=== PATIENT | female | born 1980 | race Caucasian/White ===

== ENCOUNTER 2019-11-24 10:28 | Day surgery (SDC) | payer MEDICAID ==
[~2019-11-24 10:28] MED LIST: Lactated Ringers 1,000 ML IV SCH; Sodium Chloride 0.9% 10 ML SDV IV PRN; Sodium Chloride 0.9% 10 ML Syringe FLUSH PRN; Sodium Chloride 0.9% 2.5 ML Syringe FLUSH PRN; ceFAZolin 2 GM in Premix Bag 1 BAG IV ONE
--- NOTE | 2019-11-24 11:10 | PCM.PREANE ---
Preanesthetic Assessment - Anesthesia/Transfusion/Family Hx Anesthesia History: Prior Anesthesia Without Reaction Family History of Anesthesia Reaction: No Transfusion History: No Prior Transfusion(s) - Review of Systems General: No Symptoms Pulmonary: No Symptoms Cardiovascular: No Symptoms Neurological: No Symptoms Other: Reports: None - Physical Assessment NPO Status Date: 11/23/19 Height: 5 ft 7.25 in Weight: 85.729 kg ASA Class: 2 Mental Status: Alert & Oriented x3 Airway Class: Mallampati = 2 Dentition: Reports: Normal Dentition ROM/Head Extension: Full Lungs: Clear to Auscultation, Normal Respiratory Effort Cardiovascular: Regular Rate, Regular Rhythm - Lab Values: Laboratory Last Values WBC 6.02 K/uL (4.0-11.0) 11/24/19 10:56 RBC 4.54 M/uL (4.30-5.90) 11/24/19 10:56 Hgb 13.4 g/dL (12.0-16.0) 11/24/19 10:56 Hct 41.0 % (36.0-46.0) 11/24/19 10:56 MCV 90.3 fL (80.0-98.0) 11/24/19 10:56 MCH 29.5 pg (27.0-32.0) 11/24/19 10:56 MCHC 32.7 g/dL (31.0-37.0) 11/24/19 10:56 RDW Std Deviation 46.5 fl (28.0-62.0) 11/24/19 10:56 RDW Coeff of Alexa 14 % (11.0-15.0) 11/24/19 10:56 Plt Count 277 K/uL (150-400) 11/24/19 10:56 MPV 8.80 fL (7.40-12.00) 11/24/19 10:56 Neut % (Auto) 57.5 % (48.0-80.0) 11/24/19 10:56 Lymph % (Auto) 28.2 % (16.0-40.0) 11/24/19 10:56 [place] % (Auto) 11.1 % (0.0-15.0) 11/24/19 10:56 Eos % (Auto) 2.5 % (0.0-7.0) 11/24/19 10:56 Baso % (Auto) 0.7 % (0.0-1.5) 11/24/19 10:56 Neut # (Auto) 3.5 K/uL (1.4-5.7) 11/24/19 10:56 Lymph # (Auto) 1.7 K/uL (0.6-2.4) 11/24/19 10:56 [place] # (Auto) 0.7 K/uL (0.0-0.8) 11/24/19 10:56 Eos # (Auto) 0.2 K/uL (0.0-0.7) 11/24/19 10:56 Baso # (Auto) 0.0 K/uL (0.0-0.1) 11/24/19 10:56 Nucleated RBC % 0.0 /100WBC 11/24/19 10:56 Nucleated RBCs # 0 K/uL 11/24/19 10:56 - Allergies Allergies/Adverse Reactions: Allergies Allergy/AdvReac Type Severity Reaction Status Date / Time No Known Allergies Allergy Verified 11/18/19 09:17 - Blood Blood Available: No - Anesthesia Plan Pre-Op Medication Ordered: None - Acknowledgements Anesthesia Type Planned: General Anesthesia Pt an Appropriate Candidate for the Planned Anesthesia: Yes Alternatives and Risks of Anesthesia Discussed w Pt/Guardian: Yes Pt/Guardian Understands and Agrees with Anesthesia Plan: Yes PreAnesthesia Questionnaire HEENT History: Reports: Other (See Below) Other HEENT History: wears glasses Cardiovascular History: Reports: None Respiratory History: Reports: None Gastrointestinal History: Reports: GERD Genitourinary History: Reports: None EDGER AUTOMATIC History: Reports: Other OB/BYN History: ETOP x1 Musculoskeletal History: Reports: None Neurological History: Reports: None Psychiatric History: Reports: Anxiety Endocrine/Metabolic History: Reports: None Hematologic History: Reports: Anemia Immunologic History: Reports: None Oncologic (Cancer) History: Reports: None Dermatologic History: Reports: None - Past Surgical History Head Surgeries/Procedures: Reports: None HEENT Surgical History: Reports: Oral Surgery Cardiovascular Surgical History: Reports: None Respiratory Surgical History: Reports: None GI Surgical History: Reports: None Female Surgical History: Reports: None Endocrine Surgical History: Reports: None Neurological Surgical History: Reports: None Musculoskeletal Surgical History: Reports: None Oncologic Surgical History: Reports: None Dermatological Surgical History: Reports: None - SUBSTANCE USE Smoking Status *Q: Current Every Day Smoker Tobacco Use Within Last Twelve Months: Cigarettes - HOME MEDS Home Medications: Home Meds Acetaminophen [Tylenol] 2 tab PO ASDIRECTED PRN 11/18/19 [History] Cyanocobalamin (Vitamin B12) [Vitamin B12] 1 tab PO DAILY 11/18/19 [History] Doxycycline Hyclate 1 tab PO BID 11/18/19 [History] Ibuprofen 3 tab PO ASDIRECTED PRN 11/18/19 [History] Iron 65 mg PO DAILY 11/18/19 [History] Omeprazole Magnesium [Prilosec Otc] 20 mg PO DAILY 11/18/19 [History] Pnv No.95/Ferrous Fum/Folic AC [ Vitamin Tablet] 1 tab PO DAILY [History] metroNIDAZOLE [Flagyl] 1 tab PO BID 11/18/19 [History] - CURRENT (IN HOUSE) MEDS Current Meds: Current Medications Lactated Ringer's (Ringers, Lactated) 1,000 mls @ 500 mls/hr IV BOLUS NOY Sodium Chloride (Saline Flush) 10 ml FLUSH ASDIRECTED PRN PRN Reason: Keep Vein Open Sodium Chloride (Saline Flush) 2.5 ml FLUSH ASDIRECTED PRN PRN Reason: Keep Vein Open Sodium Chloride (Normal Saline) 10 ml IV ASDIRECTED PRN PRN Reason: IV Use Sodium Chloride (Saline Flush) 10 ml FLUSH ASDIRECTED PRN PRN Reason: Keep Vein Open Sodium Chloride (Saline Flush) 2.5 ml FLUSH ASDIRECTED PRN PRN Reason: Keep Vein Open Sodium Chloride (Normal Saline) 10 ml IV ASDIRECTED PRN PRN Reason: IV Use Discontinued Medications Cefazolin Sodium/Dextrose 2 gm (/ Premix) 50 mls @ 100 mls/hr IV ONETIME ONE Stop: 11/24/19 06:29
[2019-11-24 11:28] LABS: BLOOD UREA NITROGEN,BUN 12 mg/dL (7.0-18.0); CARBON DIOXIDE,CO2 24.6 mmol/L (21.0-32.0); CHLORIDE,CL 103 mmol/L (98-107); GLUCOSE RANDOM 91 mg/dL (74-106); POTASSIUM,K 4.1 mmol/L (3.5-5.1); SODIUM,NA 137 mmol/L (136-145)
[2019-11-24] MEDS ORDERED: Midazolam 1 MG/ML 2 ML SDV ONE ×3 (11:28→11:58)
[2019-11-24] MEDS ORDERED: Propofol 200 MG/20 ML SDV ONE (11:28)
[2019-11-24] MEDS ORDERED: fentaNYL 250 MCG/5 ML SDV ONE (11:29)
[2019-11-24] MEDS ORDERED: HYDROmorphone 2 MG/ML Syringe ONE (11:29)
[2019-11-24] MEDS ORDERED: Dexamethasone 4 MG/ML 5 ML MDV ONE (11:31)
[2019-11-24] MEDS ORDERED: Ondansetron 4 MG/2 ML SDV ONE (11:31)
[2019-11-24] MEDS ORDERED: Lidocaine 2% 5 ML SDV ONE (11:31)
[2019-11-24] MEDS ORDERED: Ketorolac 30 MG/ML SDV ONE (11:31)
[2019-11-24] MEDS ORDERED: Glycopyrrolate 0.2 MG/ML SDV ONE (11:31)
[2019-11-24] MEDS ORDERED: Sugammadex Sodium 200 MG/2 ML VIAL ONE (11:33)
--- NOTE | 2019-11-24 11:35 | PCM.SN.2 ---
- Free Text/Narrative Note: Contacted by nursing staff that patient is extremely nervous and tearful. I visited with her and she requested some relaxing medication so versed 2 mg given IVP after nasal cannula and monitor placed on patient.
[2019-11-24] MEDS ORDERED: Fluorescein 5 ML Vial ONE ×2 (11:38→13:50)
--- NOTE | 2019-11-24 11:49 | PCM.SN.2 ---
- Free Text/Narrative Note: Patient is requesting additional relaxing medication as she states that she initially got dizzy and felt a little better but she is still very nervous. Versed 2 mg and Glycopyrrolate 0.2 mg given IV at the request of Arbaham Nguyen CRNA who will be dong her anesthesia for her surgery.
[2019-11-24] MEDS ORDERED: Bupivacaine 0.25% 10 ML SDV ONE (12:00)
[2019-11-24] MEDS ORDERED: Sodium Chloride 0.9% 20 ML ONE (12:02)
[2019-11-24] MEDS ORDERED: ceFAZolin 1 GM Vial ONE (12:02)
[2019-11-24] MEDS ORDERED: Rocuronium 100 MG/10 ML Syringe ONE ×2 (12:58)
[2019-11-24] MEDS ORDERED: Acetaminophen 1,000 MG in Premix Bag 1 BAG IV PRN (14:19)
[2019-11-24] MEDS ORDERED: Furosemide 40 MG/4 ML VIAL ONE (15:16)
[2019-11-24] MEDS: fentaNYL 100 MCG/2 ML SDV IVPUSH PRN ×2 (16:39→16:54)
[2019-11-24] MEDS ORDERED: Promethazine 25 MG/ML SDV IM PRN (16:52)
[2019-11-24] MEDS ORDERED: Ondansetron 4 MG/2 ML SDV IVPUSH PRN (16:52)
[2019-11-24] MEDS ORDERED: metroNIDAZOLE/Normal Saline 500 MG in Premix Bag 1 BAG IV ONE (16:52)
[2019-11-24] MEDS ORDERED: Ketorolac 30 MG/ML SDV IVPUSH ONE ×2 (16:52→16:58)
[2019-11-24] MEDS ORDERED: Belladonna Alkaloids/Opium 16.2-30 MG Supp RECTAL ONE (17:00)
[2019-11-24] MEDS ORDERED: Dextrose 5%-0.9% NaCl 1,000 ML IV SCH (17:00)
--- NOTE | 2019-11-24 17:07 | PCM.OPNOTE ---
- General Post-Op/Procedure Note Date of Surgery/Procedure: 11/24/19 Operative Procedure(s): Total laparoscopic hysterectomy. Bilateral salphingectomy. Cystoscopy Findings: Normal sized retroverted uterus Laparoscopy showed 3cm subserosal fibroid Bilateral tubes completed adhered to the posterior side wall Bilateral hydrosalphinx also noted with dilated tubes Cystoscopy showed bilateral ureteral jets and intact bladder Pre Op Diagnosis: Chronic PID Post-Op Diagnosis: Chronic PID. Uterine fibroid. Bilateral hydrosalpinx Anesthesia Technique: General ET Tube Primary Surgeon: Rosalba Omalley Secondary Surgeon: Kellie Almendarez Anesthesia Provider: Abraham Nguyen Pathology: Uterus, cervix Bilateral tubes Fluid Replacement, Intraop: 2,400 Output, Urine Amount: 200 EBL in mLs: 100 Complications: None Condition: Good Free Text/Narrative:: Intake & Output 11/24/19 11/24/19 11/24/19 06:59 14:59 22:59 Output Total 200 Balance -200
--- NOTE | 2019-11-24 17:56 | PCM.POSTAN ---
POST ANESTHESIA ASSESSMENT - MENTAL STATUS Mental Status: Alert, Oriented - VITAL SIGNS Vital Signs: Last Vital Signs Temp 97.6 F 11/24/19 16:28 Pulse 69 11/24/19 17:26 Resp 6 L 11/24/19 17:26 BP 107/66 11/24/19 17:26 Pulse Ox 100 11/24/19 17:26 - RESPIRATORY Respiratory Status: Respiratory Rate WNL, Airway Patent, O2 Saturation Stable - CARDIOVASCULAR CV Status: Pulse Rate WNL, Blood Pressure Stable - GASTROINTESTINAL GI Status: No Symptoms - PAIN Pain Score: 7 (but appears only in mod (not severe) discomfort) - POST OP HYDRATION Hydration Status: Adequate & Stable
[2019-11-24] MEDS: Morphine 4 MG/ML Syringe IVPUSH PRN ×2 (17:59→22:04)
[2019-11-24] MEDS: Acetaminophen 325 MG Tab PO SCH ×2 (18:05→22:03)
[2019-11-24] MEDS: Metoclopramide 10 MG/2 ML SDV IVPUSH SCH (18:10)
[2019-11-24] MEDS: oxyCODONE 5 MG Tab PO PRN (20:54)
[2019-11-24] MEDS: cefOXitin 2 GM in Premix Bag 1 BAG IV SCH (21:03)
[2019-11-25] MEDS: Ketorolac 30 MG/ML SDV IVPUSH PRN ×2 (01:22→07:05)
[2019-11-25] MEDS: oxyCODONE 5 MG Tab PO PRN ×3 (01:23→10:09)
[2019-11-25] MEDS: cefOXitin 2 GM in Premix Bag 1 BAG IV SCH (01:38)
[2019-11-25] MEDS: Acetaminophen 325 MG Tab PO SCH ×3 (06:12→10:08)
[2019-11-25 06:20] LABS: BLOOD UREA NITROGEN,BUN 13 mg/dL (7.0-18.0); CARBON DIOXIDE,CO2 26.6 mmol/L (21.0-32.0); CHLORIDE,CL 106 mmol/L (98-107); GLUCOSE RANDOM 89 mg/dL (74-106); POTASSIUM,K 3.6 mmol/L (3.5-5.1); SODIUM,NA 138 mmol/L (136-145)
[2019-11-25] MEDS: Metoclopramide 10 MG/2 ML SDV IVPUSH SCH ×2 (06:23→10:10)
--- NOTE | 2019-11-25 07:32 | PCM48HPAN ---
Post Anesthesia Note - EVALUATION WITHIN 48HRS OF ANESTHETIC Vital Signs in Normal Range: Yes Patient Participated in Evaluation: Yes Respiratory Function Stable: Yes Airway Patent: Yes Cardiovascular Function Stable: Yes Hydration Status Stable: Yes Pain Control Satisfactory: Yes (pain is tolerable) Nausea and Vomiting Control Satisfactory: Yes Mental Status Recovered: Yes Vital Signs: Last Vital Signs Temp 36.8 C 11/25/19 04:00 Pulse 71 11/25/19 04:00 Resp 14 11/25/19 04:00 BP 98/47 L 11/25/19 04:00 Pulse Ox 97 11/25/19 04:00
--- NOTE | 2019-11-25 10:17 | PCM.SURGPN ---
- General Info Date of Service: 11/25/19 Date of Surgery/Procedure: 11/25/19 POD#: 1 Post-Op Diagnosis: Chronic PID Functional Status: Reports: Pain Controlled, Tolerating Diet, Ambulating, Urinating - Review of Systems General: Reports: No Symptoms HEENT: Reports: No Symptoms Pulmonary: Reports: No Symptoms Cardiovascular: Reports: No Symptoms Gastrointestinal: Reports: No Symptoms Genitourinary: Reports: No Symptoms Musculoskeletal: Reports: No Symptoms Skin: Reports: No Symptoms Neurological: Reports: No Symptoms Psychiatric: Reports: No Symptoms - Patient Data Vitals - Most Recent: Last Vital Signs Temp 37.1 C 11/25/19 07:15 Pulse 68 11/25/19 07:15 Resp 16 11/25/19 07:15 BP 108/66 11/25/19 07:15 Pulse Ox 96 11/25/19 07:15 Weight - Most Recent: 85.729 kg I&O - Last 24 Hours: Intake & Output 11/24/19 11/25/19 11/25/19 22:59 06:59 14:59 Intake Total 5600 Output Total 1250 700 Balance 4350 -700 Lab Results Last 24 Hrs: Laboratory Results - last 24 hr 11/24/19 11/24/19 11/24/19 Range/Units 10:56 10:56 10:56 WBC 6.02 (4.0-11.0) K/uL RBC 4.54 (4.30-5.90) M/uL Hgb 13.4 (12.0-16.0) g/dL Hct 41.0 (36.0-46.0) % MCV 90.3 (80.0-98.0) fL MCH 29.5 (27.0-32.0) pg MCHC 32.7 (31.0-37.0) g/dL RDW Std Deviation 46.5 (28.0-62.0) fl RDW Coeff of Alexa 14 (11.0-15.0) % Plt Count 277 (150-400) K/uL MPV 8.80 (7.40-12.00) fL Neut % (Auto) 57.5 (48.0-80.0) % Lymph % (Auto) 28.2 (16.0-40.0) % [place] % (Auto) 11.1 (0.0-15.0) % Eos % (Auto) 2.5 (0.0-7.0) % Baso % (Auto) 0.7 (0.0-1.5) % Neut # (Auto) 3.5 (1.4-5.7) K/uL Lymph # (Auto) 1.7 (0.6-2.4) K/uL [place] # (Auto) 0.7 (0.0-0.8) K/uL Eos # (Auto) 0.2 (0.0-0.7) K/uL Baso # (Auto) 0.0 (0.0-0.1) K/uL Nucleated RBC % 0.0 /100WBC Nucleated RBCs # 0 K/uL Sodium 137 (136-145) mmol/L Potassium 4.1 (3.5-5.1) mmol/L Chloride 103 (98-107) mmol/L Carbon Dioxide 24.6 (21.0-32.0) mmol/L BUN 12 (7.0-18.0) mg/dL Creatinine 0.7 (0.6-1.0) mg/dL Est Cr Clr Drug Dosing 105.91 mL/min Estimated GFR (MDRD) > 60.0 ml/min Glucose 91 (74-106) mg/dL Calcium 8.6 (8.5-10.1) mg/dL HCG, Qual NEGATIVE (NEG) Blood Type Antibody Screen 11/24/19 11/25/19 11/25/19 Range/Units 10:57 05:55 05:55 WBC 11.05 H (4.0-11.0) K/uL RBC 3.55 L (4.30-5.90) M/uL Hgb 10.6 L (12.0-16.0) g/dL Hct 32.2 L (36.0-46.0) % MCV 90.7 (80.0-98.0) fL MCH 29.9 (27.0-32.0) pg MCHC 32.9 (31.0-37.0) g/dL RDW Std Deviation 46.5 (28.0-62.0) fl RDW Coeff of Alexa 14 (11.0-15.0) % Plt Count 213 (150-400) K/uL MPV 8.60 (7.40-12.00) fL Neut % (Auto) 67.7 (48.0-80.0) % Lymph % (Auto) 22.3 (16.0-40.0) % [place] % (Auto) 9.0 (0.0-15.0) % Eos % (Auto) 0.8 (0.0-7.0) % Baso % (Auto) 0.2 (0.0-1.5) % Neut # (Auto) 7.5 H (1.4-5.7) K/uL Lymph # (Auto) 2.5 H (0.6-2.4) K/uL [place] # (Auto) 1.0 H (0.0-0.8) K/uL Eos # (Auto) 0.1 (0.0-0.7) K/uL Baso # (Auto) 0.0 (0.0-0.1) K/uL Nucleated RBC % 0.0 /100WBC Nucleated RBCs # 0 K/uL Sodium 138 (136-145) mmol/L Potassium 3.6 (3.5-5.1) mmol/L Chloride 106 (98-107) mmol/L Carbon Dioxide 26.6 (21.0-32.0) mmol/L BUN 13 (7.0-18.0) mg/dL Creatinine 0.7 (0.6-1.0) mg/dL Est Cr Clr Drug Dosing 105.91 mL/min Estimated GFR (MDRD) > 60.0 ml/min Glucose 89 (74-106) mg/dL Calcium 7.4 L (8.5-10.1) mg/dL HCG, Qual (NEG) Blood Type O POSITIVE Antibody Screen NEGATIVE Med Orders - Current: Current Medications Acetaminophen (Tylenol) 650 mg PO Q4H NOY Last Admin: 11/25/19 10:08 Dose: 650 mg Lactated Ringer's (Ringers, Lactated) 1,000 mls @ 500 mls/hr IV BOLUS NOY Last Admin: 11/24/19 11:24 Dose: 500 mls/hr Acetaminophen 1,000 mg/ Premix 100 mls @ 400 mls/hr IV Q6H PRN PRN Reason: Pain Last Admin: 11/24/19 16:58 Dose: 400 mls/hr Dextrose/Sodium Chloride (Dextrose 5%-Normal Saline) 1,000 mls @ 125 mls/hr IV ASDIRECTED NOY Last Admin: 11/24/19 18:15 Dose: 125 mls/hr Ketorolac Tromethamine (Toradol) 30 mg IVPUSH Q6H PRN PRN Reason: Pain (severe 7-10) Stop: 11/29/19 16:52 Last Admin: 11/25/19 07:05 Dose: 30 mg Metoclopramide HCl (Reglan) 10 mg IVPUSH Q8H [facility] Last Admin: 11/25/19 10:10 Dose: 10 mg Morphine Sulfate (Morphine) 4 mg IVPUSH Q2H PRN PRN Reason: Pain (severe 7-10) Last Admin: 11/24/19 22:04 Dose: 4 mg Ondansetron HCl (Zofran) 4 mg IVPUSH Q6H PRN PRN Reason: Nausea/Vomiting Oxycodone HCl (Oxycodone) 5 mg PO Q4H PRN PRN Reason: Pain (moderate 4-6) Last Admin: 11/25/19 10:09 Dose: 5 mg Promethazine HCl (Phenergan) 25 mg IM Q6H PRN PRN Reason: Nausea/Vomiting Sodium Chloride (Saline Flush) 10 ml FLUSH ASDIRECTED PRN PRN Reason: Keep Vein Open Sodium Chloride (Saline Flush) 2.5 ml FLUSH ASDIRECTED PRN PRN Reason: Keep Vein Open Sodium Chloride (Normal Saline) 10 ml IV ASDIRECTED PRN PRN Reason: IV Use Sodium Chloride (Saline Flush) 10 ml FLUSH ASDIRECTED PRN PRN Reason: Keep Vein Open Sodium Chloride (Saline Flush) 2.5 ml FLUSH ASDIRECTED PRN PRN Reason: Keep Vein Open Sodium Chloride (Normal Saline) 10 ml IV ASDIRECTED PRN PRN Reason: IV Use Discontinued Medications Belladonna Alkaloids/Opium (B & O Supprettes No. 15a) 1 supp RECTAL ONETIME ONE Stop: 11/24/19 17:01 Last Admin: 11/24/19 18:54 Dose: 1 supp Bupivacaine HCl (Sensorcaine-Mpf 0.25%) Confirm Administered Dose 10 ml .ROUTE .STK-MED ONE Stop: 11/24/19 12:01 Cefazolin Sodium (Ancef) Confirm Administered Dose 2 gm .ROUTE .STK-MED ONE Stop: 11/24/19 12:03 Dexamethasone (Dexamethasone) Confirm Administered Dose 20 mg .ROUTE .STK-MED ONE Stop: 11/24/19 11:32 Fentanyl (Sublimaze) Confirm Administered Dose 250 mcg .ROUTE .STK-MED ONE Stop: 11/24/19 11:30 Fentanyl (Sublimaze) 50 mcg IVPUSH Q5M PRN PRN Reason: Pain Last Admin: 11/24/19 16:54 Dose: 50 mcg Fluorescein Sodium (Ak-Fluor) Confirm Administered Dose 5 ml .ROUTE .STK-MED ONE Stop: 11/24/19 11:39 Fluorescein Sodium (Ak-Fluor) Confirm Administered Dose 5 ml .ROUTE .STK-MED ONE Stop: 11/24/19 13:51 Furosemide (Lasix) Confirm Administered Dose 40 mg .ROUTE .STK-MED ONE Stop: 11/24/19 15:17 Glycopyrrolate (Robinul) Confirm Administered Dose 0.2 mg .ROUTE .STK-MED ONE Stop: 11/24/19 11:32 Hydromorphone HCl (Dilaudid) Confirm Administered Dose 2 mg .ROUTE .STK-MED ONE Stop: 11/24/19 11:30 Cefazolin Sodium/Dextrose 2 gm (/ Premix) 50 mls @ 100 mls/hr IV ONETIME ONE Stop: 11/24/19 06:29 Last Admin: 11/24/19 18:05 Dose: Not Given Sodium Chloride (Normal Saline) Confirm Administered Dose 20 mls @ as directed .ROUTE .STK-MED ONE Stop: 11/24/19 12:03 Acetaminophen (Ofirmev) Confirm Administered Dose 100 mls @ as directed .ROUTE .STK-MED ONE Stop: 11/24/19 16:41 Metronidazole 500 mg/ Premix 100 mls @ 100 mls/hr IV ONETIME ONE Stop: 11/24/19 17:51 Last Admin: 11/24/19 19:01 Dose: 100 mls/hr Cefoxitin Sodium 2 gm/ Premix 50 mls @ 100 mls/hr IV Q6H NOY Stop: 11/25/19 00:29 Last Admin: 11/25/19 01:38 Dose: 100 mls/hr Ketorolac Tromethamine (Toradol) Confirm Administered Dose 30 mg .ROUTE .STK- MED ONE Stop: 11/24/19 11:32 Ketorolac Tromethamine (Toradol) 60 mg IVPUSH ONETIME ONE Stop: 11/24/19 16:59 Last Admin: 11/24/19 17:08 Dose: 60 mg Ketorolac Tromethamine (Toradol) 30 mg IVPUSH ONETIME ONE Stop: 11/24/19 16:53 Last Admin: 11/24/19 18:05 Dose: Not Given Lidocaine (Xylocaine-Mpf 2%) Confirm Administered Dose 5 ml .ROUTE .STK-MED ONE Stop: 11/24/19 11:32 Midazolam HCl (Versed 1 Mg/Ml) Confirm Administered Dose 2 mg .ROUTE .STK-MED ONE Stop: 11/24/19 11:29 Midazolam HCl (Versed 1 Mg/Ml) Confirm Administered Dose 2 mg .ROUTE .STK-MED ONE Stop: 11/24/19 11:30 Midazolam HCl (Versed 1 Mg/Ml) Confirm Administered Dose 2 mg .ROUTE .STK-MED ONE Stop: 11/24/19 11:59 Ondansetron HCl (Zofran) Confirm Administered Dose 4 mg .ROUTE .STK-MED ONE Stop: 11/24/19 11:32 Propofol (Diprivan 20 Ml) Confirm Administered Dose 200 mg .ROUTE .STK-MED ONE Stop: 11/24/19 11:29 Rocuronium [place] (Zemuron) Confirm Administered Dose 100 mg .ROUTE .STK-MED ONE Stop: 11/24/19 12:59 Rocuronium [place] (Zemuron) Confirm Administered Dose 100 mg .ROUTE .STK-MED ONE Stop: 11/24/19 12:59 Sugammadex Sodium (Bridion) Confirm Administered Dose 200 mg .ROUTE .STK-MED ONE Stop: 11/24/19 11:34 - Exam Wound/Incisions: Dressing Dry and Intact General: Alert HEENT: Pupils Equal Neck: Supple Lungs: Clear to Auscultation Cardiovascular: Regular Rate, Regular Rhythm GI/Abdominal Exam: Normal Bowel Sounds Extremities: Normal Inspection Neurological: No New Focal Deficit Psy/Mental Status: Alert Sepsis Event Note - Evaluation Sepsis Screening Result: No Definite Risk - Focused Exam Vital Signs: Vital Signs Temp Pulse Resp BP Pulse Ox 11/25/19 07:15 37.1 C 68 16 108/66 96 11/25/19 04:00 36.8 C 71 14 98/47 L 97 Date Exam was Performed: 11/25/19 Time Exam was Performed: 10:12 - Problem List & Annotations (1) S/P hysterectomy SNOMED Code(s): 323917573, 991542786, 902783797 Code(s): Z90.710 - ACQUIRED ABSENCE OF BOTH CERVIX AND UTERUS Status: Acute Current Visit: Yes - Problem List Review Problem List Initiated/Reviewed/Updated: Yes - My Orders Last 24 Hours: Active Orders 24 hr Category Date Time Status Patient Status [ADT] Routine ADT 11/24/19 16:52 Active Antiembolic Devices [RC] PER UNIT ROUTINE Care 11/24/19 16:53 Active Notify Provider Intake and Out [RC] ASDIRECTED Care 11/24/19 16:52 Active Notify Provider Vital Signs [RC] ASDIRECTED Care 11/24/19 16:52 Active Oxygen Therapy [RC] ASDIRECTED Care 11/24/19 16:52 Active RT Incentive Spirometry [RC] Q2HWA Care 11/24/19 16:52 Active Up With Assistance [RC] PER UNIT ROUTINE Care 11/24/19 16:52 Active Up ad Joleen [RC] PER UNIT ROUTINE Care 11/24/19 16:52 Active Urinary Catheter Removal [RC] Per Unit Routine Care 11/24/19 16:52 Active Regular Diet [DIET] Diet 11/24/19 Dinner Active Acetaminophen [Ofirmev] 1,000 mg Med 11/24/19 14:19 Active Premix Bag 1 bag IV Q6H Acetaminophen [Tylenol] Med 11/24/19 18:00 Active 650 mg PO Q4H Dextrose 5%-0.9% NaCl [Dextrose 5%-Normal Saline] 1,000 Med 11/24/19 17:00 Active ml IV ASDIRECTED Ketorolac [Toradol] Med 11/24/19 16:52 Active 30 mg IVPUSH Q6H PRN Metoclopramide [Reglan] Med 11/24/19 17:15 Active 10 mg IVPUSH Q8H Morphine Med 11/24/19 16:52 Active 4 mg IVPUSH Q2H PRN Ondansetron [Zofran] Med 11/24/19 16:52 Active 4 mg IVPUSH Q6H PRN Promethazine [Phenergan] Med 11/24/19 16:52 Active 25 mg IM Q6H PRN oxyCODONE Med 11/24/19 16:52 Active 5 mg PO Q4H PRN Peripheral IV Discontinue [OM.PC] Routine Oth 11/24/19 16:52 Ordered Sequential Compression Device [OM.PC] Per Unit Routine Oth 11/24/19 16:52 Ordered Resuscitation Status Routine Resus Stat 11/24/19 16:52 Ordered Medication Orders Acetaminophen (Tylenol) 650 mg PO Q4H [facility] Last Admin: 11/25/19 10:08 Dose: 650 mg Admin: 11/25/19 06:40 Dose: Not Given Admin: 11/25/19 06:12 Dose: 650 mg Admin: 11/24/19 22:03 Dose: 650 mg Admin: 11/24/19 18:05 Dose: Lactated Ringer's (Ringers, Lactated) 1,000 mls @ 500 mls/hr IV BOLUS [facility] Last Admin: 11/24/19 11:24 Dose: 500 mls/hr Acetaminophen 1,000 mg/ Premix 100 mls @ 400 mls/hr IV Q6H PRN PRN Reason: Pain Last Admin: 11/24/19 16:58 Dose: 400 mls/hr Dextrose/Sodium Chloride (Dextrose 5%-Normal Saline) 1,000 mls @ 125 mls/hr IV ASDIRECTED [facility] Last Admin: 11/24/19 18:15 Dose: 125 mls/hr Ketorolac Tromethamine (Toradol) 30 mg IVPUSH Q6H PRN PRN Reason: Pain (severe 7-10) Stop: 11/29/19 16:52 Last Admin: 11/25/19 07:05 Dose: 30 mg Admin: 11/25/19 01:22 Dose: 30 mg Metoclopramide HCl (Reglan) 10 mg IVPUSH Q8H [facility] Last Admin: 11/25/19 10:10 Dose: 10 mg Admin: 11/25/19 06:23 Dose: Not Given Admin: 11/24/19 18:10 Dose: 10 mg Morphine Sulfate (Morphine) 4 mg IVPUSH Q2H PRN PRN Reason: Pain (severe 7-10) Last Admin: 11/24/19 22:04 Dose: 4 mg Admin: 11/24/19 17:59 Dose: 4 mg Ondansetron HCl (Zofran) 4 mg IVPUSH Q6H PRN PRN Reason: Nausea/Vomiting Oxycodone HCl (Oxycodone) 5 mg PO Q4H PRN PRN Reason: Pain (moderate 4-6) Last Admin: 11/25/19 10:09 Dose: 5 mg Admin: 11/25/19 06:10 Dose: 5 mg Admin: 11/25/19 01:23 Dose: 5 mg Admin: 11/24/19 20:54 Dose: 5 mg Promethazine HCl (Phenergan) 25 mg IM Q6H PRN PRN Reason: Nausea/Vomiting Sodium Chloride (Saline Flush) 10 ml FLUSH ASDIRECTED PRN PRN Reason: Keep Vein Open Sodium Chloride (Saline Flush) 2.5 ml FLUSH ASDIRECTED PRN PRN Reason: Keep Vein Open Sodium Chloride (Normal Saline) 10 ml IV ASDIRECTED PRN PRN Reason: IV Use Sodium Chloride (Saline Flush) 10 ml FLUSH ASDIRECTED PRN PRN Reason: Keep Vein Open Sodium Chloride (Saline Flush) 2.5 ml FLUSH ASDIRECTED PRN PRN Reason: Keep Vein Open Sodium Chloride (Normal Saline) 10 ml IV ASDIRECTED PRN PRN Reason: IV Use - Assessment Assessment (Free Text/Narrative):: 39yo s/p Hysterectomy bilateral salphingectomy for Chronic PID She has good pain control voiding , tolerating regular diet - Plan Plan (Free Text/Narrative):: Discharge home
--- NOTE | 2019-11-25 11:16 | OR ---
DATE OF PROCEDURE: 11/24/2019 SURGEON: ZAMZAM MEYERS PREOPERATIVE DIAGNOSES: A 39-year-old, para 0, with acute on chronic inflammatory disease, severe dysmenorrhea. POSTOPERATIVE DIAGNOSES: Uterine fibroids, chronic pelvic inflammatory disease, bilateral hydrosalpinx. PROCEDURES: Total laparoscopic hysterectomy, bilateral salpingectomy, cystoscopy. ESTIMATED BLOOD LOSS: 100. IV FLUID: 2400. URINE OUTPUT: 200. NOTES AND FINDINGS: Severe posterior adhesive disease noted. Bilateral hydrosalpinx noted. The ovaries look atrophic. The tube was severely adhered in the posterior cul-de- sac. 3cm subserosa fibroid COMPLICATIONS: None. PATHOLOGY: Uterus and tubes. BRIEF HISTORY: A 39-year-old, G1, P0, who had been seen by me for past 1 year. She has been treated for PID repeatedly. She always has escalation of PID when she has period. She complained of severe pelvic pain, and she always had elevated white count As a result of the chronic nature of the PID with frequent recurrence while patient is off antibiotics, She was counseled for TLH/BS. USS done showed bilateral hydrosalphinx . She was explained the risks, benefits, and alternatives, and she decided to proceed. DESCRIPTION OF PROCEDURE: The patient was taken to the operating room where general anesthesia was performed without difficulty. She was prepared and draped in the dorsal lithotomy position with Master stirrups. A Hobbs catheter was placed. The speculum was placed to expose the cervix. The anterior lip of the cervix was grasped. The cervix was sized to accommodate a 3 cm Advincula. Uterus was sounded to about 9 cm. Advincula was placed without difficulty. Then, attention was placed to the abdomen. A subumbilical 5 mm incision was made after injection of 0.25% Marcaine. The abdomen was entered via direct entry with the fiberoptic trocar. Low pressure of 5 mmHg was noted. CO2 pneumoperitoneum was then obtained to 15 mmHg. The patient was then placed in Trendelenburg position. First, a left lower quadrant incision was made, about 6 cm, two fingerbreadths from the anterior superior iliac spine, and was 6 cm to this line. A second trocar was placed 1 cm below also, the two left lower quadrant trocars about 6 cm. Then, a right lower quadrant trocar was also made two fingerbreadths superior and anterior to the iliac spine. On inspection of the pelvis, there was noted to have severe adhesive disease. The tubes were completely obscured in the retroperitoneum close to the ovary,With careful dissection with the scissors and then hydrodissection, the tube was freed and then transected from the released end to the cornua. This was done on the right and on the left side. The ovarian ligament was then transected. The round ligament was transected and the bladder flap was created. After the bladder flap was created, the uterine arteries on the right and the left were skeletonized and the uterine artery was then coagulated and cut at the cuff. This was done on both sides. After the uterine artery was coagulated and cut, then a circumferential incision was made with the Harmonic scalpel at the cervicovaginal junction. The uterus was removed from the perineum and an occluding device was put in the vagina after which the V-Loc passed through the vagina. The vagina was sutured with incorporation of the uterosacral ligament. It was sutured in 2 layers. First layer consisted of the vagina mucosa and the second layer the posterior peritoneum with the anterior periotneum. The incision was inspected under low and high O2 pressure and was noted to be hemostatic. Then, cystoscopy was performed and bilateral ureteral jet was noted and bladder was noted to be intact. The trocars were removed and the incision was closed with 3-0 Monocryl. The patient was left in recovery room in stable condition. DANYEL BAKER /[id number] FILEMON
== END 2019-11-25 11:30 | disposition home or self-care (01) ==
LOC: MW.SDS 10:28 → MW.OB 16:55 → MW.SDS 11-25 11:30
PROVIDERS: ATTEND Obstetrics & Gynecology
DX: D25.0 Submucous leiomyoma of uterus (principal); D25.2 Subserosal leiomyoma of uterus; N87.9 Dysplasia of cervix uteri, unspecified; N88.8 Other specified noninflammatory disorders of cervix uteri; F17.210 Nicotine dependence, cigarettes, uncomplicated; N73.6 Female pelvic peritoneal adhesions (postinfective); Z79.899 Other long term (current) drug therapy; Z98.890 Other specified postprocedural states
CPT/HCPCS: 36415; 58571; 80048; 84703; 85025; 86850; 86900; 86901; A9270; J0131; J0690; J0694; J1100; J1170; J1885; J1940; J2001; J2250; J2270; J2405; J2704; J2765; J3010; J3490; J7042; J7120; 00944